=== PATIENT | male | born 1985 | race Caucasian/White ===

== ENCOUNTER 2019-08-14 17:30 | Emergency (ER) | payer SELFPAY ==
[~2019-08-14] VITALS: Ht 185.4 cm; Wt 107.5 kg
[2019-08-14 17:42] VITALS: Ht 185.4 cm; Wt 107.5 kg
[2019-08-14 19:06] VITALS: BP 151/89
== END 2019-08-14 19:06 | disposition home or self-care (01) ==
LOC: ED 17:30
DX: S90.31XA Contusion of right foot, initial encounter (principal); I10 Essential (primary) hypertension; M79.10 Myalgia, unspecified site; V89.2XXA Person injured in unspecified motor-vehicle accident, traffic, initial encounter; Y93.89 Activity, other specified; Y92.89 Other specified places as the place of occurrence of the external cause; Y99.8 Other external cause status